=== PATIENT | male | born 1970 | race African-American/Black ===

== ENCOUNTER 2020-05-16 10:05 | Emergency (ER) | payer OTHER ==
[~2020-05-16] VITALS: Ht 172.7 cm; Wt 64.0 kg
[2020-05-16 10:16] VITALS: BP 133/100; Ht 172.7 cm; Wt 64.0 kg
== END 2020-05-16 12:52 | disposition home or self-care (01) ==
LOC: ED 10:05
DX: S61.212A Laceration without foreign body of right middle finger without damage to nail, initial encounter (principal); G89.29 Other chronic pain; M54.9 Dorsalgia, unspecified; F17.210 Nicotine dependence, cigarettes, uncomplicated; Z88.5 Allergy status to narcotic agent; W22.8XXA Striking against or struck by other objects, initial encounter; Y93.89 Activity, other specified; Y92.89 Other specified places as the place of occurrence of the external cause; Y99.8 Other external cause status
CPT/HCPCS: 90715; J2001